=== PATIENT | male | born 1950 | race Caucasian/White ===

== ENCOUNTER → 2023-05-10 08:19 | Outpatient (REF) | payer MEDICARE, OTHER, SELFPAY | LOC: RAD 08:19 | PROVIDERS: ATTENDING PHYSICIAN Podiatrist Primary Podiatric Medicine; FAMILY PHYSICIAN Family Medicine | DX: M79.671 Pain in right foot (principal); M79.672 Pain in left foot; L89.892 Pressure ulcer of other site, stage 2; E11.51 Type 2 diabetes mellitus with diabetic peripheral angiopathy without gangrene | CPT/HCPCS: 93922; 93925 ==

== ENCOUNTER → 2023-06-19 12:16 | Outpatient (REF) | payer MEDICARE, OTHER, SELFPAY | LOC: HWRAD 12:16 | PROVIDERS: ATTENDING PHYSICIAN Podiatrist Primary Podiatric Medicine; FAMILY PHYSICIAN Family Medicine | DX: M79.671 Pain in right foot (principal) | CPT/HCPCS: 73630 ==

== ENCOUNTER 2023-07-11 12:05 | Emergency (ER) | payer MEDICARE, OTHER, SELFPAY ==
[2023-07-11 12:21] VITALS: BP 136/60
[2023-07-11 12:59] LABS: % Basophils 0.3 % (0-2); % Eosinophils 0.2 % (0-6); % Immature Granulocytes 0.3 % (0-0.5); % Lymphocytes 12.4 % (20.5-51.1); % Monocytes 8.9 % (1.7-9.3); % Neutrophils 77.9 % (42.2-75.2); Absolute Lymphocytes 0.7 10^3/uL (1.2-3.4); Absolute Monocytes 0.5 10^3/uL (0.1-0.6); Absolute Neutrophils 4.6 10^3/uL (1.4-6.5); Hematocrit 37.3 % (39.0-52.0); Hemoglobin 13.4 g/dL (13.0-18.0); Mean Corp Hgb Conc. 35.9 g/dL (33.0-37.0); Mean Corpuscular Hgb 31.9 pg (27.0-31.0); Mean Corpuscular Volume 88.8 fL (80.0-94.0); Nucleated Red Blood Cells % 0 % (-); Platelet Count 135 10^3/uL (130-400); Red Cell Dist. Width 13.5 % (11.5-14.5)
[2023-07-11 13:07] LABS: COVID-19 Antigen Negative (Negative)
[2023-07-11 13:14] LABS: ALT (SGPT) 17 U/L (0-50); AST (SGOT) 27 U/L (17-59); Albumin 4.2 g/dl (3.5-5.0); Alkaline Phosphatase 110 U/L (38-126); Blood Urea Nitrogen 23 mg/dl (9-20); Calcium 9.3 mg/dl (8.4-10.2); Carbon Dioxide 22 mmol/L (22-30); Chloride 100 mmol/L (98-107); Glucose 131 mg/dl (70-99); Potassium 4.6 mmol/L (3.5-5.1); Sodium 132 mmol/L (135-145); Total Bilirubin 0.8 mg/dl (0.2-1.3); Total Protein 6.8 g/dl (6.3-8.2); eGFR > 60.00
[2023-07-11 15:12] LABS: Glucose - Point of Care 143 mg/dl (70-99)
--- NOTE | 2023-07-11 15:24 | ED.GENMED ---
History of Present Illness
General
Chief Complaint: Breathing Problem
Time Seen by Provider: 07/11/23 15:03
Travel History
Have you had any contact with someone who has COVID-19?: No
Do you have any symptoms of coronavirus? Fever > 100 degrees, chills, cough, shortness of breath, sore throat, loss of taste or smell, muscle aches, or headache?: No
History of Present Illness
History of Present Illness:
72-year-old male with history of insulin-dependent diabetes, chronic kidney disease, permanent atrial fibrillation on anticoagulants, hypertension, and hyperlipidemia presents to the emergency department for evaluation of generalized weakness,
productive cough, and intermittent shortness of breath for the past 3 days. Noted a tactile fever today prompting him to come to the emergency department. Denies any chest pain at rest. Denies any leg swelling or orthopnea. No ill contacts at
home.
Past History
Past History
ED Past Medical History: Arrthythmia (Atrial fib), HTN, Hypercholesterolemia, NIDDM and Other (Melanoma)
ED Past Surgical History: Other (Hernia)
Social History
Tobacco: Non-smoker
Alcohol: Occasional
Drug: None
Personal:
Living: alone
Review of Systems
Review of Systems
Allergies reviewed?: Yes
All Other Systems: ROS reviewed and negative except as documented in HPI and ROS
Phy Exam
Physical Exam
Physical Exam:
GEN: Well appearing, NAD, WDWN
Eyes: PERRLA, EOMs intact, no scleral icterus
HENT: NCAT, oral mucosa moist, no JVD, no cervical adenopathy.
Lungs: Mildly tachypneic, no accessory muscle use, focal rhonchi and wheezing heard at the left base, otherwise clear lungs
Cardiac: RRR, no M/R/G, no peripheral edema. Radial pulses 2+ bilat
Neuro: AO x 3
MSK: No gross deformity or ecchymosis. No edema. No digital clubbing
Skin: No rashes, petechiae. Normal color, no pallor or jaundice.
Psych: Calm, cooperative, proper hygiene
Scores
Heart Failure Risk
Heart Failure Risk Score: Not Applicable
Course
Orders/Labs/Results
Orders:
Orders
07/11/23 12:35
COVID-19 Antigen Urgent
Source: Nasal Swab
Complete Blood Count/With Diff Urgent
Comprehensive Metabolic Panel Urgent
Influenza A+B Rapid Molecular Urgent
[facility] Source: Nasal Swab
Specimen Description:
07/11/23 15:17
CR Chest - 2 Views Urgent
Comment:
Reason For Exam: SOB/coughing
07/11/23 16:30
Azithromycin [Zithromax] 500 mg PO NOW STA
Cefdinir [Omnicef] 300 mg PO NOW STA
Abnormal Lab Results
07/11/23 07/11/23
12:35 15:10
RBC 4.20 L 10^6/uL
(4.70-6.10)
Hct 37.3 L %
(39.0-52.0)
MCH 31.9 H pg
(27.0-31.0)
Absolute Lymphs (auto) 0.7 L 10^3/uL
(1.2-3.4)
Neutrophils % 77.9 H %
(42.2-75.2)
Lymphocytes % 12.4 L %
(20.5-51.1)
Sodium 132 L mmol/L
(135-145)
BUN 23 H mg/dl
(9-20)
Glucose 131 H mg/dl
(70-99)
POC Glucose 143 H mg/dl
(70-99)
07/11/23 12:35
07/11/23 12:35
Vital Signs
Initial and Last Documented VS:
Initial Vital Signs
Temp Pulse Resp BP Pulse Ox
98.9 F 77 20 136/60 96
07/11/23 12:21 07/11/23 12:21 07/11/23 12:21 07/11/23 12:21 07/11/23 12:21
Last Documented Vital Signs
Temp Pulse Resp BP Pulse Ox
98.9 F 77 20 136/60 96
07/11/23 12:21 07/11/23 12:21 07/11/23 12:21 07/11/23 12:21 07/11/23 12:21
MDM/Problems Addressed
MDM/Problems Addressed:
72-year-old male presents with shortness of breath and tactile fevers as well as productive coughing. He does have focal left base breath sounds suggestive of bacterial pneumonia. His respiratory effort is normal and his labs are reassuring. No
clinical signs concerning for CHF. He is anticoagulated thus do not suspect pulmonary embolism. Given his numerous medical comorbidities particularly insulin-dependent diabetes and chronic kidney disease he is high risk for complicated infections
thus we will treat him empirically with antibiotics despite lack of definitive imaging to prove pneumonia.
Comment
Comment:
Chest x-ray independently interpreted by me shows questionable patchy density in the right lower lobe, otherwise clear lungs, no effusions
*Critical Care Note
Total Time (30-74mins, 75-104mins- exclusive of procedures): Not Applicable
ED Attending Note
-
Portions of this chart may have been created with voice recognition software.� Occasional wrong word or��sound alike� substitutions may have occurred due to the inherent limitations of voice recognition software.
Discharge Plan
Departure
Patient Disposition: Home (Routine Discharge)
Date of Disposition: 07/11/23
Time of Disposition: 16:32
Patient with high blood pressure during this ER visit?: No
Discharge Problem:
Community acquired pneumonia
Instructions: Pneumonia, Adult (DC)
Prescriptions:
New
azithromycin [Zithromax] 250 mg tablet
250 mg PO DAILY Qty: 4 0RF
cefdinir 300 mg capsule
300 mg PO BID Qty: 9 0RF
No Action
diazepam 5 MG tablet
5 mg PO TIDPRN PRN (Reason: muscle spasms) Qty: 15 0RF
Patient Comments:
new prescription as of 03/12/2011
metformin 500 MG tablet
1,000 mg PO BID
atorvastatin 10 MG tablet
10 mg PO DAILY
sotalol 80 MG tablet
120 mg PO BID
warfarin [Jantoven] 10 MG tablet
10 mg PO DAILY
Patient Comments:
patient stated he takes 10 mg of coumadin daily for 13 out of 14 days--yesterday 03/11/2011 was his skip day
lisinopril 20 MG tablet
20 mg PO DAILY
oxycodone-acetaminophen 1 TABLET tablet
1 tab PO Q6HPRN PRN (Reason: pain)
tamsulosin 0.4 MG capsule
0.4 mg PO DAILY
repaglinide 1 MG tablet
1 mg PO MEALS
prednisone 10 mg tablet
20 mg PO DAILY 5 Days Qty: 10 0RF
meclizine 25 mg tablet
25 mg PO TID PRN (Reason: dizziness) Qty: 20 0RF
Referrals:
Wayne Liu, [Family Provider] -
Activity Restrictions/Additional Instructions:
Begin your antibiotics tomorrow
If your symptoms worsen, return to the ER
Interventions
Interventions:
*Risk Screen - Suicide Last Done: 07/11/23 15:27
*General Assessment Last Done: 07/11/23 15:27
*Neglect/Abuse Screening Last Done: 07/11/23 15:27
*ED COVID-19 Vaccine History Last Done: 07/11/23 12:21
ED- Cardiac Assessment Last Done: 07/11/23 15:27
ED- Pulmonary Assessment Last Done: 07/11/23 15:27
Discharge Date and Time
Print Language: [place]
[2023-07-11] MEDS: OMNICEF 300 MG PO (16:35)
[2023-07-11] MEDS: ZITHROMAX 500 MG PO (16:35)
== END 2023-07-11 16:43 | disposition home or self-care (01) ==
LOC: EMR 12:05
PROVIDERS: Emergency Medicine; EMERGENCY PHYSICIAN Emergency Medicine; FAMILY PHYSICIAN Family Medicine
DX: J18.9 Pneumonia, unspecified organism (principal); Z11.52 Encounter for screening for COVID-19; E11.22 Type 2 diabetes mellitus with diabetic chronic kidney disease; I48.21 Permanent atrial fibrillation; I12.9 Hypertensive chronic kidney disease with stage 1 through stage 4 chronic kidney disease, or unspecified chronic kidney disease; N18.9 Chronic kidney disease, unspecified; E78.00 Pure hypercholesterolemia, unspecified; Z85.820 Personal history of malignant melanoma of skin; Z79.01 Long term (current) use of anticoagulants; Z79.84 Long term (current) use of oral hypoglycemic drugs; Z88.0 Allergy status to penicillin; Z91.018 Allergy to other foods
CPT/HCPCS: 99283; 71046; 80053; 82962; 85025; 87502; 87811

== ENCOUNTER → 2023-07-26 11:32 | Outpatient (REF) | payer MEDICARE, OTHER, SELFPAY | LOC: HWRAD 11:32 | PROVIDERS: ATTENDING PHYSICIAN Family Medicine | DX: S79.819A Other specified injuries of unspecified hip, initial encounter (principal); M54.50 Low back pain, unspecified | CPT/HCPCS: 72110; 73522 ==

== ENCOUNTER → 2023-08-31 07:09 | Outpatient (REF) | payer MEDICARE, OTHER, SELFPAY | LOC: MRI 3T 07:09 | PROVIDERS: ATTENDING PHYSICIAN Pain Medicine Interventional Pain Medicine; FAMILY PHYSICIAN Family Medicine | DX: M54.16 Radiculopathy, lumbar region (principal) | CPT/HCPCS: 72148 ==

== ENCOUNTER → 2024-02-22 09:56 | Outpatient (REF) | payer MEDICARE, OTHER, SELFPAY ==
[2024-02-22 13:10] LABS: Blood Urea Nitrogen 26 mg/dl (9-20); Calcium 9.8 mg/dl (8.4-10.2); Carbon Dioxide 29 mmol/L (22-30); Chloride 100 mmol/L (98-107); Glucose 110 mg/dl (70-99); Potassium 4.9 mmol/L (3.5-5.1); Sodium 137 mmol/L (135-145); eGFR 52.74
== END ==
LOC: REG 09:56
PROVIDERS: ATTENDING PHYSICIAN Specialist; FAMILY PHYSICIAN Family Medicine
DX: E87.5 Hyperkalemia (principal); E11.22 Type 2 diabetes mellitus with diabetic chronic kidney disease; R80.9 Proteinuria, unspecified
CPT/HCPCS: 36415; 80048

== ENCOUNTER → 2024-02-28 07:09 | Outpatient (REF) | payer MEDICARE, OTHER, SELFPAY | LOC: RAD 07:09 | PROVIDERS: ATTENDING PHYSICIAN Family Medicine; OTHER PHYSICIAN Specialist | DX: R79.89 Other specified abnormal findings of blood chemistry (principal); E11.22 Type 2 diabetes mellitus with diabetic chronic kidney disease; N18.31 Chronic kidney disease, stage 3a; R10.32 Left lower quadrant pain | CPT/HCPCS: 74176 ==

== ENCOUNTER → 2024-04-28 07:35 | Outpatient (REF) | payer MEDICARE, OTHER, SELFPAY | LOC: MRI 3T 07:35 | PROVIDERS: ATTENDING PHYSICIAN Physician Assistant; FAMILY PHYSICIAN Family Medicine | DX: M54.14 Radiculopathy, thoracic region (principal) | CPT/HCPCS: 72146 ==

== ENCOUNTER → 2024-05-22 08:40 | Outpatient (REF) | payer MEDICARE, OTHER, SELFPAY | LOC: PAVMRI 08:40 | PROVIDERS: ATTENDING PHYSICIAN Physician Assistant; FAMILY PHYSICIAN Family Medicine | DX: R93.89 Abnormal findings on diagnostic imaging of other specified body structures (principal) | CPT/HCPCS: 72157; A9575 ==

== ENCOUNTER → 2024-08-23 06:24 | Outpatient (REF) | payer MEDICARE, OTHER, SELFPAY | LOC: RAD 06:24 | PROVIDERS: ATTENDING PHYSICIAN Surgery Vascular Surgery; FAMILY PHYSICIAN Family Medicine | DX: I73.9 Peripheral vascular disease, unspecified (principal) | CPT/HCPCS: 93922; 93925 ==

== ENCOUNTER → 2024-09-20 12:17 | Outpatient (REF) | payer MEDICARE, OTHER, SELFPAY | LOC: HWRAD 12:17 | PROVIDERS: ATTENDING PHYSICIAN Family Medicine | DX: E04.9 Nontoxic goiter, unspecified (principal) | CPT/HCPCS: 76536 ==

== ENCOUNTER 2024-12-09 18:14 | Inpatient (IN) | payer MEDICARE, OTHER, SELFPAY ==
[2024-12-09] VITALS (8 sets, daily range): BP systolic 104–153; BP diastolic 45–98; BMI 30.4
--- NOTE | 2024-12-09 14:27 | ED.GENMED ---
History of Present Illness
<Ramya Smith MD, Resident - Last Filed: 12/09/24 16:05>
General
Chief Complaint: Skin Problem
Source: patient
Time Seen by Provider: 12/09/24 13:49
History of Present Illness
History of Present Illness:
74-year-old male with past medical history of atrial fibrillation on Eliquis, CKD stage IV not on dialysis, insulin-dependent diabetes, hypertension presents the ER for severe right sided hip pain resulting in ambulatory dysfunction and left calf
skin infection.
Right hip pain started on November 11, 5 hours after she is COVID and flu shot. He went to see an orthopedic and x-ray did not reveal any fracture, dislocation or arthritis. He was diagnosed with bursitis and treated with a corticosteroid shot
with no improvement in symptoms. He attempted 2 weeks of physical therapy which did not help. Tylenol/codeine combination marginally helps, certain positions and movement make it worse. He rates the pain a 8-9 out of 10 in severity. The pain
radiates from his right medial buttocks down the anterior three quarters of his thigh associated with numbness and tingling. He denies any significant erythema, swelling, fevers, chills. He does endorse some nausea with intense pain that he states
has limited his eating. He has lost 19 lbs in the past month due to poor PO intake.
Regarding his left calf skin infection, it started about 2 weeks ago. He saw his PCP last Monday and was diagnosed with an abscess. It was 'drained' in the office and he was treated with antibiotics (not sure the name). Since then, it has
improved significantly. Erythema and swelling has significantly decreased.
He does endorse burning with urination for the past 6 days associated with increased frequency, urgency and weaker urinary stream. He denies any hematuria or rash. He has been taking cranberry supplements which have not helped.
Past History
<Ramya Smith MD, Resident - Last Filed: 12/09/24 16:05>
Past History
ED Past Medical History: Arrthythmia (Atrial fib), HTN, Hypercholesterolemia, IDDM, Other (Melanoma) and Other (Stage IV CKD not on dialysis, diabetic retinopathy, diabetic neuropathy, peripheral vascular disease, thyroid nodules)
ED Past Surgical History: Other (Hernia repair, tonsillectomy, bilateral rotator cuff surgery, left knee surgery)
Social History
Tobacco: Non-smoker
Alcohol: Daily (2-3 beers a day)
Drug: None
Personal:
Living: alone
Family History
Family History: Other (Mom-muscular dystrophy, unknown what type, quadruple bypass, pancreatic cancer at age 37)
Review of Systems
<Ramya Smith MD, Resident - Last Filed: 12/09/24 16:05>
Review of Systems
Allergies reviewed?: Yes
Constitutional: Reports weight loss
EENT: Reports no symptoms
Respiratory: Reports no symptoms
Cardiac: Reports no symptoms
ABD/GI: Reports other (Yellow brown stools)
: Reports dysuria, frequency and urgency
Musculoskeletal: Reports muscle pain (Right hip pain)
Skin: Reports other (left calf erythema )
Neurological: Reports numbness
Endocrine: Reports no symptoms
Hematologic/Lymphatic: Reports no symptoms
Psychiatric: Reports no symptoms
Phy Exam
<Ramya Smith MD, Resident - Last Filed: 12/09/24 16:05>
Physical Exam
Physical Exam:
General: Non-toxic, well appearing
Head: Atraumatic
Cardiac: Bradycardic irregular rhythm
Respiratory: Clear breath sounds bilaterally
Abdomen: Diffusely abdominal tenderness with palpation, no CVA tenderness, no guarding or rigidity, obese
Extremities: No peripheral edema
Skin: Left calf wound with Band-Aid present, under Band-Aid, mild erythema
Musculoskeletal: Tenderness with palpation just proximal to the left lateral epicondyle, tenderness along medial gluteus, no lumbar midline tenderness, left sided paravertebral muscle tenderness.
Neurological: Nonfocal, awake alert and oriented
Psych: Calm
Course
<Ramya Smith MD, Resident - Last Filed: 12/09/24 16:05>
Orders/Labs/Results
Orders:
Orders
12/09/24 14:51
CBC/With Diff [Complete Blood Count/With Diff] Urgent
Comprehensive Metabolic Panel Urgent
Serum Osmolality Urgent
Comment: ADD ON
12/09/24 Dinner
2000 calorie (17 carb) Diabetic
At Your Request: Full Participation
Does patient need a safe tray?: No
12/09/24 15:30
Osmolality, Random Urine Urgent
Date Specimen was Collected: 11/29/24
Time Specimen was Collected: 15:02
Comment: ADD ON
Urinalysis Reflex To Culture Urgent
Date Specimen was Collected: 11/29/24
Time Specimen was Collected: 15:02
Urine Microscopic Reflex Cult Urgent
Urine Sodium Urgent
Date Specimen was Collected: 11/29/24
Time Specimen was Collected: 15:02
Comment: ADD ON
Urine Culture Urgent
LUKE Source: U
Specimen Description:
Date Specimen was Collected: 11/29/24
Time Specimen was Collected: 15:02
12/09/24 15:55
Electrocardiogram (*1) Urgent
Reason for Study: Other
Other Reason for Exam: Hyperkalemia
EKG- Treatment ONCE
12/09/24 16:34
CefTRIAXone [Rocephin] 1,000 mg IV NOW STA
HYDROmorphone [Dilaudid] 0.5 mg IV NOW STA
12/09/24 17:17
Admit/Transfer Patient As Directed
Co-Sign Provider:
Level of Care: Inpatient admission
Assign to:: Telemetry
Physician / Group: Htay
Diagnosis: QUINTIN, Hyperkalemia, UTI
Reason for Telemetry: Arrhythmia
Date to Stop Telemetry: 12/12/24
Time to Stop Telemetry: 11:00
Reason for Hospitalization: IVFs, IV abx
Expected length of stay greater than two midnights?: Yes
ELOS- Estimated Length of Stay in days: 3
I certify the patient meets the requirements for IP care: Yes
PRN Pain Medication Management As Directed
May give lesser potent ordered pain med per pt: Yes
preference::
Protocol:: Medication orders for pain may be administered in a
manner that supports deferring to patient preference
when the pt is:
- Requesting an ordered lesser potent pain medication.
Least to most potent pain medications are defined
as: acetaminophen < NSAID < tramadol < opioids
(morphine, oxycodone, hydromorphone).
- Requesting a lesser dose of the same medication IF
ORDERED.
- Requesting a less intrusive route of administration
if both routes are prescribed by the provider (PO <
IV).
12/09/24 17:19
Code Status As Directed
Resuscitation Status: Full Code
12/09/24 17:30
0.9% Sodium Chloride 1000 ml [Nss] 1,000 ml IV 100 mls/hr
12/09/24 18:20
DC Protocol for Telemetry ONCE
12/09/24 18:23
Acetaminophen [Tylenol] 650 mg PO Q4HPRN PRN
Atorvastatin [Lipitor] 10 mg PO QPM
Dextrose 50%-Water [Dextrose 50% Syringe] 12.5 grams IV [id number] PRN
Doxazosin Mesylate [Cardura] 2 mg PO QPM
Glucagon [GlucaGen] 1 mg IM PRN PRN
HYDROmorphone [Dilaudid] 0.5 mg IV Q3HPRN PRN
Oxycodone/Acetaminophen [Percocet 5/325] 1 tablet PO Q4HPRN PRN
12/09/24 18:23
Lumbar Without Contrast MR [MR Lumbar Without Contrast] Routine
Comment:
Reason For Exam: lumbar radiculopathy
Recent pill cam endoscopy?: No
Activity As Directed
Activity Level: Out of Bed-Early Mobility
With Assistance
Bedside Glucose Monitoring As Directed
Frequency: AC&HS
Additional Instructions:: Change to q6h if pt on TPN, tube feeding or not eating
Bladder Scan As Directed
Follow Bladder Retention/Intermittent Cath Algorithm?: Yes
PRN if no void in __ hours: 6
Frequency: Per Retention Algorithm
If Bladder Scan Result >: 400
then:: Straight cath
I&O [Intake/ Output] As Directed
Frequency: q12h
Straight Cath As Directed
Frequency: Per Retention Algorithm
Additional Instructions: straight cath as needed per acute urinary retention algorithm for 24 hrs
Additional Instructions: for bladder scan greater than 400 mL
Vital Signs As Directed
Frequency: Per unit guidelines
Weight As Directed
Frequency: Daily
Ot Eval And Treat Routine
Pt Eval And Treat Routine
Activity Level: Out of Bed-Early Mobility
12/09/24 20:00
Apixaban [Eliquis] 5 mg PO BID
12/09/24 22:00
Gabapentin [Neurontin] 300 mg PO HS
Tamsulosin [Flomax] 0.4 mg PO HS
insulin glargine [Lantus Solostar U-100 Insulin] 16 unit SC HS
12/10/24 07:05
Basic Metabolic Panel IN AM
Complete Blood Count/No Diff IN AM
Glycohemoglobin (HgbA1c) IN AM
Magnesium IN AM
12/10/24 07:30
Insulin Aspart Corrective Low [Novolog Flexpen-Low Resistance] See Protocol SC AC
12/10/24 08:00
Lidocaine [Lidocaine 4% Patch] 1 patch TOPICAL DAILY
Apply Lidocaine patch(s) to:: Apply to Right Hip
Prednisone [Deltasone] 40 mg PO DAILY
12/10/24 16:00
CefTRIAXone [Rocephin] 1,000 mg IV Q24H
Abnormal Lab Results
12/09/24 12/09/24
14:51 15:30
RBC 4.36 L 10^6/uL
(4.70-6.10)
MCH 31.2 H pg
(27.0-31.0)
Absolute Monos (auto) 0.7 H 10^3/uL
(0.1-0.6)
Lymphocytes % 14.9 L %
(20.5-51.1)
Sodium 127 L mmol/L
(135-145)
Potassium 5.7 H mmol/L
(3.5-5.1)
Carbon Dioxide 18 L mmol/L
(22-30)
BUN 50 H mg/dl
(9-20)
Creatinine 2.1 H mg/dL
(0.7-1.3)
Glucose 155 H mg/dl
(70-99)
Ur Occult Blood Reflex 1+ A
(Negative)
Leukocyte Esterase Rfl 2+ A
(Negative)
Urine RBC 3-6 A /HPF
(0-2)
Urine WBC (Reflex) 50-60 A /HPF
(0-5)
Urine Bacteria (Reflex) Moderate A
(Negative)
Urine Glucose 4+ A
(Negative)
Urine Albumin (Reflex) 1+ A
(Neg - Trace)
12/09/24 14:51
12/09/24 14:51
Vital Signs
Initial and Last Documented VS:
Initial Vital Signs
Temp Pulse Resp BP Pulse Ox
97.6 F 60 16 118/59 99
12/09/24 12:41 12/09/24 12:41 12/09/24 12:41 12/09/24 12:41 12/09/24 12:41
Last Documented Vital Signs
Temp Pulse Resp BP Pulse Ox
97.6 F 107 16 116/80 99
12/11/24 07:30 12/11/24 07:46 12/11/24 07:30 12/11/24 07:30 12/11/24 07:30
<Dariel Yuan MD - Last Filed: 12/11/24 11:56>
Orders/Labs/Results
Orders:
Orders
12/09/24 14:51
CBC/With Diff [Complete Blood Count/With Diff] Urgent
Comprehensive Metabolic Panel Urgent
Serum Osmolality Urgent
Comment: ADD ON
12/09/24 Dinner
2000 calorie (17 carb) Diabetic
At Your Request: Full Participation
Does patient need a safe tray?: No
12/09/24 15:30
Osmolality, Random Urine Urgent
Date Specimen was Collected: 11/29/24
Time Specimen was Collected: 15:02
Comment: ADD ON
Urinalysis Reflex To Culture Urgent
Date Specimen was Collected: 11/29/24
Time Specimen was Collected: 15:02
Urine Microscopic Reflex Cult Urgent
Urine Sodium Urgent
Date Specimen was Collected: 11/29/24
Time Specimen was Collected: 15:02
Comment: ADD ON
Urine Culture Urgent
LUKE Source: U
Specimen Description:
Date Specimen was Collected: 11/29/24
Time Specimen was Collected: 15:02
12/09/24 15:55
Electrocardiogram (*1) Urgent
Reason for Study: Other
Other Reason for Exam: Hyperkalemia
EKG- Treatment ONCE
12/09/24 16:34
CefTRIAXone [Rocephin] 1,000 mg IV NOW STA
HYDROmorphone [Dilaudid] 0.5 mg IV NOW STA
12/09/24 17:17
Admit/Transfer Patient As Directed
Co-Sign Provider:
Level of Care: Inpatient admission
Assign to:: Telemetry
Physician / Group: Htay
Diagnosis: QUINTIN, Hyperkalemia, UTI
Reason for Telemetry: Arrhythmia
Date to Stop Telemetry: 12/12/24
Time to Stop Telemetry: 11:00
Reason for Hospitalization: IVFs, IV abx
Expected length of stay greater than two midnights?: Yes
ELOS- Estimated Length of Stay in days: 3
I certify the patient meets the requirements for IP care: Yes
PRN Pain Medication Management As Directed
May give lesser potent ordered pain med per pt: Yes
preference::
Protocol:: Medication orders for pain may be administered in a
manner that supports deferring to patient preference
when the pt is:
- Requesting an ordered lesser potent pain medication.
Least to most potent pain medications are defined
as: acetaminophen < NSAID < tramadol < opioids
(morphine, oxycodone, hydromorphone).
- Requesting a lesser dose of the same medication IF
ORDERED.
- Requesting a less intrusive route of administration
if both routes are prescribed by the provider (PO <
IV).
12/09/24 17:19
Code Status As Directed
Resuscitation Status: Full Code
12/09/24 17:30
0.9% Sodium Chloride 1000 ml [Nss] 1,000 ml IV 100 mls/hr
12/09/24 18:20
DC Protocol for Telemetry ONCE
12/09/24 18:23
Acetaminophen [Tylenol] 650 mg PO Q4HPRN PRN
Atorvastatin [Lipitor] 10 mg PO QPM
Dextrose 50%-Water [Dextrose 50% Syringe] 12.5 grams IV [id number] PRN
Doxazosin Mesylate [Cardura] 2 mg PO QPM
Glucagon [GlucaGen] 1 mg IM PRN PRN
HYDROmorphone [Dilaudid] 0.5 mg IV Q3HPRN PRN
Oxycodone/Acetaminophen [Percocet 5/325] 1 tablet PO Q4HPRN PRN
12/09/24 18:23
Lumbar Without Contrast MR [MR Lumbar Without Contrast] Routine
Comment:
Reason For Exam: lumbar radiculopathy
Recent pill cam endoscopy?: No
Activity As Directed
Activity Level: Out of Bed-Early Mobility
With Assistance
Bedside Glucose Monitoring As Directed
Frequency: AC&HS
Additional Instructions:: Change to q6h if pt on TPN, tube feeding or not eating
Bladder Scan As Directed
Follow Bladder Retention/Intermittent Cath Algorithm?: Yes
PRN if no void in __ hours: 6
Frequency: Per Retention Algorithm
If Bladder Scan Result >: 400
then:: Straight cath
I&O [Intake/ Output] As Directed
Frequency: q12h
Straight Cath As Directed
Frequency: Per Retention Algorithm
Additional Instructions: straight cath as needed per acute urinary retention algorithm for 24 hrs
Additional Instructions: for bladder scan greater than 400 mL
Vital Signs As Directed
Frequency: Per unit guidelines
Weight As Directed
Frequency: Daily
Ot Eval And Treat Routine
Pt Eval And Treat Routine
Activity Level: Out of Bed-Early Mobility
12/09/24 20:00
Apixaban [Eliquis] 5 mg PO BID
12/09/24 22:00
Gabapentin [Neurontin] 300 mg PO HS
Tamsulosin [Flomax] 0.4 mg PO HS
insulin glargine [Lantus Solostar U-100 Insulin] 16 unit SC HS
12/10/24 07:05
Basic Metabolic Panel IN AM
Complete Blood Count/No Diff IN AM
Glycohemoglobin (HgbA1c) IN AM
Magnesium IN AM
12/10/24 07:30
Insulin Aspart Corrective Low [Novolog Flexpen-Low Resistance] See Protocol SC AC
12/10/24 08:00
Lidocaine [Lidocaine 4% Patch] 1 patch TOPICAL DAILY
Apply Lidocaine patch(s) to:: Apply to Right Hip
Prednisone [Deltasone] 40 mg PO DAILY
12/10/24 16:00
CefTRIAXone [Rocephin] 1,000 mg IV Q24H
Abnormal Lab Results
12/09/24 12/09/24
14:51 15:30
RBC 4.36 L 10^6/uL
(4.70-6.10)
MCH 31.2 H pg
(27.0-31.0)
Absolute Monos (auto) 0.7 H 10^3/uL
(0.1-0.6)
Lymphocytes % 14.9 L %
(20.5-51.1)
Sodium 127 L mmol/L
(135-145)
Potassium 5.7 H mmol/L
(3.5-5.1)
Carbon Dioxide 18 L mmol/L
(22-30)
BUN 50 H mg/dl
(9-20)
Creatinine 2.1 H mg/dL
(0.7-1.3)
Glucose 155 H mg/dl
(70-99)
Ur Occult Blood Reflex 1+ A
(Negative)
Leukocyte Esterase Rfl 2+ A
(Negative)
Urine RBC 3-6 A /HPF
(0-2)
Urine WBC (Reflex) 50-60 A /HPF
(0-5)
Urine Bacteria (Reflex) Moderate A
(Negative)
Urine Glucose 4+ A
(Negative)
Urine Albumin (Reflex) 1+ A
(Neg - Trace)
12/09/24 14:51
12/09/24 14:51
Vital Signs
Initial and Last Documented VS:
Initial Vital Signs
Temp Pulse Resp BP Pulse Ox
97.6 F 60 16 118/59 99
12/09/24 12:41 12/09/24 12:41 12/09/24 12:41 12/09/24 12:41 12/09/24 12:41
Last Documented Vital Signs
Temp Pulse Resp BP Pulse Ox
97.6 F 107 16 116/80 99
12/11/24 07:30 12/11/24 07:46 12/11/24 07:30 12/11/24 07:30 12/11/24 07:30
<Ramya Smith MD, Resident - Last Filed: 12/09/24 16:05>
MDM/Problems Addressed
Differential Diagnosis Includes:
Degenerative disc disease, bursitis, lateral cutaneous nerve entrapment, septic arthritis, musculoskeletal strain,
cellulitis, abscess, superficial wound,
urinary tract infection, pyelonephritis, prostatitis,
MDM/Problems Addressed:
CBC to eval for systemic infection, CMP to check renal function. U/A to eval burning with urination. Imaging at orthopedics did not reveal any arthritis, fracture or dislocation. He may need an MRI in the future to further evaluate his chronic pain.
Based on physical exam, hip pain likely combination of bursitis, musculoskeletal strain and lateral cutaneous nerve entrapment. He still has full range of motion and is able to walk however in pain. He does not have any fever or chills which makes
systemic infection less likely. Left calf cellulitis is improving and does not require additional treatment based on today's presentation. However BMP noted to be altered with Na 127, K 5.7, Cr 2.1. UA reveals UTI.
Chronic conditions affecting care: DM, PVD and Other (CKD stage 4, a.fib on eliquis, )
<Ramya Smith MD, Resident - Last Filed: 12/09/24 16:05>
*Pulse Oximetry
SaO2: 99
Oxygen Mode of Delivery: Room air
Patient hypoxic: no
*Critical Care Note
Total Time (30-74mins, 75-104mins- exclusive of procedures): Not Applicable
Data Reviewed
Review of Other/Old Records Reveals: Labs (Creatinine on 02/22/2024 1.4, GFR 52.74) and Radiology Studies (Thyroid nodules stable prior thyroid ultrasound 09/20/2024)
Source: patient, records and significant other
<Dariel Yuan MD - Last Filed: 12/11/24 11:56>
*EKG
Interpreted by ED Provider?: Yes
EKG Intrepretation Date: 12/09/24
Heart Rate: 76
Rate: normal
Rhythm: a-fib
[place]: normal axis
ED Attending Note
<Ramya Smith MD, Resident - Last Filed: 12/09/24 16:05>
-
Portions of this chart may have been created with voice recognition software.� Occasional wrong word or��sound alike� substitutions may have occurred due to the inherent limitations of voice recognition software.
<Dariel Yuan MD - Last Filed: 12/11/24 11:56>
ED Attending Note
Patient seen and examined by attending physician: Yes
ED Attending Note:
Patient presents to ED secondary to worsening right hip pain over the past 1 month, despite receiving cortisone injection by Dr. Junior, orthopedic surgeon, with clinical concern for bursitis. In addition, patient is reporting 6-day history of
dysuria along with urinary frequency. Patient currently is taking Bactrim secondary to potential infection of his left leg with improvement. Denies fever or chills. Denies nausea or vomiting. Denies loss of sensation or weakness. Denies back
pain, although patient does have history of lumbar stenosis. Denies urinary or bowel incontinence. Denies loss of sensation or weakness of legs. Denies direct trauma.
Physical Exam
General: mild distress, not acutely ill. afebrile
Head: nc/at. eomi
Neck: supple. no meningeal signs.
Heart: irregularly irregular
Lungs: no acute respiratory distress. clear bilaterally
Abdomen: normal bowel sounds. not tender
Neuro: alert and oriented x 3. no focal neurological deficits
Skin: no rash
Psychiatric: well kept. interactive and cooperative
Extremities: no edema. mild diffuse right hip tenderness to palpation
Blood work reviewed, significant for hyponatremia, hyperkalemia, along with acute renal failure on chronic renal insufficiency. Urinalysis also suggestive of urinary tract infection, despite taking Bactrim for the past 4 days, along with continued
urinary symptoms. As such, patient will be admitted for IV antibiotics and further assessment. Patient also may benefit from consultation with his orthopedic surgeon, with his hip pain worsening despite outpatient treatment.
Discharge Plan
Departure
Patient Disposition: Admit
Date of Disposition: 12/09/24
Time of Disposition: 16:37
Admit to: Med/Surg
Presentation/result/management discussed w/ accepting MD/DO: Hospitalist
Discharge Problem:
Acute UTI, Acute renal failure superimposed on chronic kidney disease, Hyperkalemia, Hip pain
Interventions
Interventions:
*Risk Screen - Suicide Last Done: 12/09/24 12:41
*General Assessment Last Done: 12/09/24 14:47
*Neglect/Abuse Screening Last Done: 12/09/24 12:41
*ED- Fall Risk Assessment Last Done: 12/09/24 14:47
*ED COVID-19 Vaccine History Last Done: 12/09/24 14:47
*ED Influenza Vaccine History Last Done: 12/09/24 14:47
*Nursing Disposition Last Done: 12/09/24 18:16
ED-Skin Assessment Last Done: 12/09/24 14:43
Discharge Date and Time
Discharge Date/Time: 12/09/24 18:16
[2024-12-09 15:00] LABS: Hematocrit 40.2 % (39.0-52.0); Hemoglobin 13.6 g/dL (13.0-18.0); Mean Corp Hgb Conc. 33.8 g/dL (33.0-37.0); Mean Corpuscular Volume 92.2 fL (80.0-94.0); Nucleated Red Blood Cells % 0 % (-); Platelet Count 215 10^3/uL (130-400); Red Cell Dist. Width 13.0 % (11.5-14.5)
[2024-12-09 15:28] LABS: ALT (SGPT) 27 U/L (0-50); AST (SGOT) 22 U/L (17-59); Albumin 4.1 g/dl (3.5-5.0); Alkaline Phosphatase 109 U/L (38-126); Blood Urea Nitrogen 50 mg/dl (9-20); Calcium 9.8 mg/dl (8.4-10.2); Carbon Dioxide 18 mmol/L (22-30); Chloride 104 mmol/L (98-107); Glucose 155 mg/dl (70-99); Potassium 5.7 mmol/L (3.5-5.1); Sodium 127 mmol/L (135-145); Total Protein 7.1 g/dl (6.3-8.2); eGFR 32.22
[2024-12-09 15:45] LABS: Urine Character Clear (Clear)
[2024-12-09 15:58] LABS: Urine White Cell 50-60 /HPF (0-5)
[2024-12-09] MEDS: ROCEPHIN 1000 MG IV (16:42)
[2024-12-09] MEDS: DILAUDID 0.5 MG IV (16:42)
--- NOTE | 2024-12-09 16:44 | HPS.HSE ---
Family Physician
-
Family Physician: Wayne Liu
Chief Complaint
-
Right Hip Pain
History of Present Illness
Patient is a 74 y/o male past medical history of permanent atrial fibrillation on anticoagulation, diabetes mellitus, CKD III, hypertension and spinal stenosis who presents with right hip pain. He reports worsening right hip pain for the past
month. He describes the pain as burning, radiating from hip down to the mid lateral thigh. He was seen by orthopedics in the office who did hip x-rays and gave him a cortisone injection for trochanteric bursitis. Patient reports pain is
essentially unchanged.
Patient reports he was seen by his primary care provider in the office at the end of last week due increasing pain, swelling and redness of the left. He was found to have an abscess which his PCP did drain. He was started on oral Bactrim which he
has been taking.
Patient is also complaining about urinary symptoms. He noted dysuria, particularly pain at the tip of penis. He reports notable decrease in stream over the past week which as been associated with urinary frequency. He denies any recorded fevers,
but notes intermittent chills.
Medical History
Past Medical History
Past Medical History: Reports Other
Additional Past Medical History:
Permanent Atrial Fibrillation
Diabetes Mellitus, Type II
CKD Stage III secondary to Diabetic Nephropathy
Essential Hypertension
Spinal Stenosis with Radiculopathy
BPH
Past Surgical History: Reports Other
Additional Past Surgical History:
Bilateral Rotator Cuff Repair
Left Knee Surgery
Hernia Repair
Social History
Tobacco: Non-smoker
Alcohol: Occasional
Family History
Family History: Not pertinent
Allergies / Home Medications
Allergies reflects when Allergies were last updated in [facility].
Home Medications with original date entered in [facility]
Allergy/Medication List:
Allergies
Allergy/AdvReac Type Severity Reaction Status Date / Time
Penicillins Allergy Swelling Verified 12/09/24 12:41
mayonnaise Allergy nausea Uncoded 12/09/24 12:41
products made with wheat Allergy slight sob Uncoded 12/09/24 12:41
Home Medications
atorvastatin 10 mg tablet 10 mg PO QPM High Cholesterol 03/12/11
tamsulosin 0.4 mg capsule 0.4 mg PO HS 03/12/11
acetaminophen 300 mg-codeine 30 mg tablet 1 tab PO Q6HPRN PRN moderate pains 12/09/24
apixaban 5 mg tablet (Eliquis) 5 mg PO BID Blood Clot Prevention/Tx 12/09/24
doxazosin 2 mg tablet 2 mg PO QPM 12/09/24
glipizide 5 mg tablet 5 mg PO BID Diabetes 12/09/24
insulin glargine 100 unit/mL (3 mL) subcutaneous pen (Lantus Solostar U-100 Insulin) 20 unit SC HS Diabetes 12/09/24
lisinopril 40 mg tablet 40 mg PO QPM Blood Pressure 12/09/24
nifedipine 30 mg tablet,extended release 24 hr 30 mg PO DAILYPRN PRN blood pressure 12/09/24
sulfamethoxazole 800 mg-trimethoprim 160 mg tablet (Bactrim DS) 1 tab PO BID Infection 12/09/24
therapeutic multivitamin 1 tab PO TUTH Supplement 12/09/24
turmeric 400 mg capsule 400 mg PO DAILY Supplement 12/09/24
verapamil 180 mg tablet,extended release 180 mg PO DAILYPRN PRN blood pressure 12/09/24
Review of Systems
-
A 12 point ROS was completed and negative except as noted: Yes
Constitutional: Reports Chills; Denies Fever
Respiratory: Denies Cough or Trouble Breathing
Cardiac: Denies Chest Pain or Palpitations
Abdomen/GI: Reports Nausea and Constipated; Denies Abdominal Pain or Vomiting
Physical Exam
Vital Signs
Vital Signs
Temp Pulse Resp BP Pulse Ox
97.6 F 73 29 122/68 99
12/09/24 12:41 12/09/24 14:45 12/09/24 14:45 12/09/24 15:31 12/09/24 14:47
Physical Exam
General: Comfortable and Conversant
HEENT: Anicteric and Moist mucous membranes
Respiratory: Clear and Non Labored Respirations
Cardiac: S1/S2, Irregular Rhythm and Murmur; No Tachycardia
GI: Soft, Non Tender and Other (Protuberant)
Rectal: Deferred by Provider
Genito-urinary: No costovertebral tender
Musculoskeletal: No Clubbing, No Cyanosis and No Edema
Skin: Warm and Dry
Neuro: Awake, Alert, Oriented and Nonfocal/grossly intact
Psych: Calm
Laboratory Results
-
12/09/24 14:51
12/09/24 14:51
Laboratory Results
Total Bilirubin 0.5 mg/dl (0.2-1.3) 12/09/24 14:51
AST 22 U/L (17-59) 12/09/24 14:51
ALT 27 U/L (0-50) 12/09/24 14:51
Alkaline Phosphatase 109 U/L (38-126) 12/09/24 14:51
Data Reviewed
-
Lab Data: Labs Reviewed by me
Old Records: Reviewed
Impression/Plan
-
QUINTIN on CKD III / Hyponatremia / Hyperkalemia, suspect all related to recent Bactrim
-Stop Bactrim
-Hold lisinopril
-Continue IVFs
-Recheck labs later this evening and in AM
Urinary Tract Infection
-Continue ceftriaxone
-Await urine culture, though maybe negative following recent Bactrim usage
Right Hip Pain, suspect lumbar radiculopathy
-Lumbar Spine MRI August 2023: Severe right neural foraminal stenosis L4/L5
-Obtain new Lumbar Spine MRI to evaluate for change given acute worsening of symptoms
-Start prednisone 40mg PO Daily
-Start gabapentin
-Add Lidocaine patch right hip
-Consult PT/OT
Permanent Atrial Fibrillation
-Continue Eliquis for anticoagulation
Diabetes Mellitus, Type II
-Continue Lantus at decreased dose
-Hold glipizide
-Monitor sugars and continue coverage insulin
Essential Hypertension
-Lisinopril on hold due to QUINTIN
-Monitor blood pressure
Hyperlipidemia
-Continue atorvastatin
BPH
-Continue doxazosin and tamsulosin
-Monitor bladder scans
DVT proph: Eliquis
Code Status: Full Code
--- NOTE | 2024-12-09 17:47 | W.PN.UPDATE ---
Update Note
Progress Note Update
This note serves as an addendum to the H&P by bridal sales consultant Lexie EVANS
HPI�
74M HX AF on Eliquis, CKD4, not on dialysis, IDDM, HTN seen at ER
- for severe right sided hip pain resulting in ambulatory dysfunction and left calf skin infection.
- Subacute R Hip pain for 1 month, eval by Orth - diagnosed with bursitis
No relief with corticosteroid shot and PT for 2 weeks. Tylenol/codeine combination marginally helps, certain positions and movement make it worse. Pain a 8-9 out of 10 with radiates from Rt medial buttocks down the anterior three quarters of
his thigh associated with numbness and tingling.
- left calf skin infection 2 weeks ago, diagnosed with an abscess was 'drained' in the office and he was treated with Bactrim.
Since then, it has improved significantly. Erythema and swelling has significantly decreased.
- reports Dysuria for the past 6 days associated with increased frequency, urgency and weaker urinary stream.
ROS:
denies any hematuria or rash.
- has been taking cranberry supplements which have not helped.
Relevant VS
Temp Pulse Resp BP Pulse Ox
97.6 F 72 16 128/86 98
12/09/24 12:41 12/09/24 17:45 12/09/24 17:45 12/09/24 17:00 12/09/24 17:45
PE
General: Non-toxic
CVS: Bradycardic irregular rhythm in perm AF
Res: CTA
Abdomen: benign exam
Extremities: No peripheral edema
Skin: Left calf wound with Band-Aid present, under Band-Aid, mild erythema
MS: Tenderness just proximal to the left lateral epicondyle, tenderness along medial gluteus, no lumbar midline tenderness, left sided paravertebral muscle tenderness.
Neurol: Nonfocal, awake alert and oriented
Psych: Calm
Relevant Data
02/22/24 12/09/24
10:11 14:51
WBC 8.3
Hgb 13.6
Plt Count 215
Sodium 127 L
Potassium 4.9 5.7 H
Carbon Dioxide 18 L
BUN 50 H
Creatinine 1.4 H 2.1 H
eGFR 52.74 32.22
MR Lumbar Without Contrast
1. 7.9 mm grade 1 anterolisthesis of L4 on L5 secondary to severe bilateral facet joint arthrosis. SEVERE CENTRAL CANAL STENOSIS, severe right neural foraminal narrowing, and moderate left neural foraminal narrowing at L4/L5.
2. Mild central canal stenosis at L3/L4 secondary to a small diffuse disc bulge.
3. Minimal central canal stenosis at L2/L3 secondary to a small diffuse disc bulge.
4. Mild multilevel lumbar discogenic degenerative disease.
5. Moderately exaggerated lumbar lordosis.
Last hospitalist admission:
ASSESSMENT & PLAN
Worsening R sided Lx radiculopathic pain
Known MRI evidence of SEVERE CENTRAL CANAL STENOSIS, severe right neural foraminal narrowing, and moderate left neural foraminal narrowing at L4/L5.
- start PO Prednisone 40mg daily x 4 days, 20mg daily for 2 days , 10mg daily for 2 days
- Start Gabapentin daily and escalde as tolerated
- PT/OT
- OP Ortho f/u
Symptomatic UTI
Hi PVR ? partial UR
- IV CFTZ
- c/w H[employer] OPERATIONS MANAGER Flomax
- f/u UCx
QUINTIN with hyperkalemia due to recet Bactrim Tx
- DC Bactrim
- Hold Lisinopril
IDDM
- de escalade Lantus
- Hold Glipizide
- add ISS low
Perm AF
- on chr Eliquis
- on Verapamil
DVT Px: chr Eliquis
Full code
IP MS
[2024-12-09] MEDS: FLOMAX 0.4 MG PO (21:03)
[2024-12-09] MEDS: NEURONTIN 300 MG PO (21:03)
[2024-12-09] MEDS: LIPITOR 10 MG PO (21:03)
[2024-12-09] MEDS: CARDURA 2 MG PO (21:03)
[2024-12-09] MEDS: ELIQUIS 5 MG PO (21:03)
[2024-12-09] MEDS: NSS 1000 IV (21:04)
[2024-12-09] MEDS: PERCOCET 5/325 1 TABLET PO (21:14)
[2024-12-09] MEDS: LANTUS 0.16 UNITS SC (21:16)
[2024-12-09 21:17] LABS: Glucose - Point of Care 160 mg/dl (70-99)
[2024-12-09] MEDS: LANTUS 0.04 UNITS SC (21:59)
[2024-12-09 22:54] LABS: Blood Urea Nitrogen 45 mg/dl (9-20); Calcium 9.5 mg/dl (8.4-10.2); Carbon Dioxide 17 mmol/L (22-30); Chloride 105 mmol/L (98-107); Estimated Creatinine Clearance 38 ml/min; Glucose 151 mg/dl (70-99); Potassium 5.2 mmol/L (3.5-5.1); Sodium 128 mmol/L (135-145); eGFR 36.33
[2024-12-10] VITALS (8 sets, daily range): BP systolic 109–152; BP diastolic 58–92; PULSE 98; O2SAT 100; BMI 29.0
[2024-12-10] MEDS: PERCOCET 5/325 1 TABLET PO ×2 (01:46→21:47)
[2024-12-10] MEDS: DILAUDID 0.5 MG IV ×3 (02:38→22:54)
[2024-12-10] MEDS: NSS 1000 IV ×2 (03:59→15:33)
[2024-12-10 07:41] LABS: Hematocrit 36.7 % (39.0-52.0); Hemoglobin 13.0 g/dL (13.0-18.0); Mean Corp Hgb Conc. 35.4 g/dL (33.0-37.0); Mean Corpuscular Volume 89.5 fL (80.0-94.0); Platelet Count 201 10^3/uL (130-400); Red Cell Dist. Width 12.9 % (11.5-14.5)
[2024-12-10 07:55] LABS: Blood Urea Nitrogen 38 mg/dl (9-20); Calcium 9.3 mg/dl (8.4-10.2); Carbon Dioxide 21 mmol/L (22-30); Chloride 107 mmol/L (98-107); Estimated Creatinine Clearance 38 ml/min; Glucose 60 mg/dl (70-99); Magnesium 2.0 mg/dl (1.6-2.3); Potassium 5.2 mmol/L (3.5-5.1); Sodium 135 mmol/L (135-145); eGFR 41.52
[2024-12-10 08:00] LABS: Glucose - Point of Care 70 mg/dl (70-99)
[2024-12-10] MEDS: NOVOLOG FLEXPEN-LOW RESISTANCE SC (08:16)
[2024-12-10] MEDS: LIDOCAINE 4% PATCH 1 PATCH TOPICAL (08:17)
[2024-12-10] MEDS: DELTASONE 40 MG PO (08:18)
[2024-12-10] MEDS: ELIQUIS 5 MG PO (08:18)
[2024-12-10 09:04] LABS: Glycohemoglobin (HgbA1c) 7.8 % (4.0-5.9)
--- NOTE | 2024-12-10 10:32 | W.PN.HOSP.TC ---
Today's Communication/Plan
-
Lokelma, IVF
bowel regimen
continue Gabapentin/prednisone
Spine eval
continue Rocephin for UTI pending culture
Assessment / Plan
Assessment / Plan
Assessment:
QUINTIN on CKD 3b with associated hyponatremia/hyperkalemia
- likely related to recent Bactrim
- continue IVF and monitor BMP - parameters are slowly improving
- Bladder scan protocol
Recent UTI
- was on Bactrim; f/u culture although may be negative
- continue Rocephin day 2, pending culture
Right hip pain
- MRI L spine 08/2023: 7.9 mm grade 1 anterolisthesis of L4 on L5 secondary to severe bilateral facet joint arthrosis. SEVERE CENTRAL CANAL STENOSIS, severe right neural foraminal narrowing, and moderate left neural foraminal narrowing at L4/L5.
- MRI L spine today: MODERATE-SIZED RIGHT SUBARTICULAR-FORAMINAL DISC EXTRUSION at L4/L5 causing severe exiting right L4 nerve root impingement and severe right neural foraminal narrowing which appears new from 08/31/2023.
- continue PO steroids, Gabapentin and Lidocaine patch
- consult spinal surgery for opinion on procedural intervention
- PT/OT
Perm A. Fib
- hold Eliquis in case of procedure
Type 2 DM
- continue reduced dose Lantus
- hold Glipizide
- SSI
Essential HTN
- holding LUIS MIGUEL due to QUINTIN
- continue Nifedipine/Doxazosin
HLD - statin
BPH - continue doxazosin and tamsulosin
DVT ppx: SCDs
Code: Full
Anticipated Discharge: > 48 hours
Subjective/Interval History
-
Date of Service: December 10, 2024
reports R radicular pain extending into R groin and thigh
Objective Data
-
Labs:
Laboratory Results
12/09/24 12/10/24
22:33 07:05
WBC 7.1
Hgb 13.0
Hct 36.7 L
Plt Count 201
Sodium 128 L 135
Potassium 5.2 H 5.2 H
Chloride 105 107
Carbon Dioxide 17 L 21 L
BUN 45 H 38 H
Creatinine 1.9 H 1.7 H
Glucose 151 H 60 L
Calcium 9.5 9.3
Vital Signs:
Vital Signs
Temp Pulse Resp BP Pulse Ox
97.4 F 89 18 121/72 100
12/10/24 07:44 12/10/24 07:44 12/10/24 07:44 12/10/24 07:44 12/10/24 07:44
I&O
12/09/24 12/10/24 12/11/24
06:59 06:59 06:59
Intake Total 1440 / 1440
Output Total 1999 / 1999
Balance -560 / -560
Physical Exam
-
General: No Apparent Distress
HEENT: Normocephalic and Atraumatic
Respiratory: Negative Wheezes
Cardiac: Regular Rhythm and S1/S2
GI: Soft and Nontender
Genito-urinary: No Costovertebral Tender
Neuro: AO x 3
Psych: Calm
Data Reviewed
-
Total Time Spent with Patient (in minutes): 42
Labs: Labs Reviewed by me
[2024-12-10] MEDS: LOKELMA 5 GRAM PO (11:13)
[2024-12-10] MEDS: SENOKOT-S 1 TABLET PO ×2 (11:13→19:01)
[2024-12-10 12:15] LABS: Glucose - Point of Care 163 mg/dl (70-99)
[2024-12-10] MEDS: NOVOLOG FLEXPEN-LOW RESISTANCE 1 UNITS SC (12:29)
--- NOTE | 2024-12-10 13:29 | W.PN.UPDATE ---
Update Note
Progress Note Update
patient in perm A. Fib, RVR currently with rates >115; obtain EKG, start short acting Dilt 30mg QID. Titrate for HR<100
[2024-12-10] MEDS: CARDIZEM 30 MG PO ×3 (13:39→19:01)
[2024-12-10 13:44] LABS: Glucose - Point of Care 286 mg/dl (70-99)
--- NOTE | 2024-12-10 13:48 | PTCARENOTE ---
Patient with uncontrolled afib. EKG done. Dr. Leon aware. Patient is asymptomatic. PO diltiazem given.
--- NOTE | 2024-12-10 14:34 | CON.NS ---
Consultation
-
Date/Time Consultation Performed: 12/10/24
Chief Complaint
-
Presenting with back and leg pain
History of Present Illness
74-year-old male prestented with back and right leg pain. his pain started on 11/10. He sought out care with orthopedics who did a bursal injection with no effect. He then started OP PT which aggravated his symptoms. His pain radiates in a L4
distribution.He denies any weakness in his leg. He also notes a left calf abscess that was drained by his PCP and urinary issues prior to admission with new dx of UTI. He describes his leg pain as burning/aching. He does have a hx of spinal
stenosis. He has a new MRI l-spine.
Review of Systems
-
10 pt ROS completed and negative except as stated
Medication and Allergies
Home Medications
Home Medications
�Medication �Instructions �Recorded
atorvastatin 10 mg tablet 10 mg PO QPM High Cholesterol 03/12/11
tamsulosin 0.4 mg capsule 0.4 mg PO HS 03/12/11
acetaminophen 300 mg-codeine 30 mg 1 tab PO Q6HPRN PRN moderate pains 12/09/24
tablet
apixaban 5 mg tablet (Eliquis) 5 mg PO BID Blood Clot 12/09/24
Prevention/Tx
doxazosin 2 mg tablet 2 mg PO QPM 12/09/24
glipizide 5 mg tablet 5 mg PO BID Diabetes 12/09/24
insulin glargine 100 unit/mL (3 20 unit SC HS Diabetes 12/09/24
mL) subcutaneous pen (Lantus
Solostar U-100 Insulin)
lisinopril 40 mg tablet 40 mg PO QPM Blood Pressure 12/09/24
nifedipine 30 mg tablet,extended 30 mg PO DAILYPRN PRN blood 12/09/24
release 24 hr pressure
sulfamethoxazole 800 1 tab PO BID Infection 12/09/24
mg-trimethoprim 160 mg tablet
(Bactrim DS)
therapeutic multivitamin 1 tab PO TUTH Supplement 12/09/24
turmeric 400 mg capsule 400 mg PO DAILY Supplement 12/09/24
verapamil 180 mg tablet,extended 180 mg PO DAILYPRN PRN blood 12/09/24
release pressure
Allergies
Allergies
Allergy/AdvReac Type Severity Reaction Status Date / Time
Penicillins Allergy Swelling Verified 12/09/24 12:41
mayonnaise Allergy nausea Uncoded 12/09/24 12:41
products made with wheat Allergy slight sob Uncoded 12/09/24 12:41
Physical Exam
-
Exam:
AAOx3
CN's2-12 intact
MAEx4 with normal stength in UE and LE's
decreased patellar reflex right
sensation intact
MRI lumbar spine reviewed which shows L4-5 grade 1 spondylolisthesiswith right sided crnaially migrated L4/5 HNP causing severe L4 nerve root compression
Problems
-
Problem Status Onset Code
Hip pain Acute M25.559
Hyperkalemia Acute E87.5
Acute renal failure superimposed on chronic kidney disease Acute N17.9, N18.9
Acute UTI Acute N39.0
Assessment / Plan
-
Lumbar radiculopathy
Lumbar stenosis
Lumbar spondylolisthesis
1. attempt KYAW with IR while in house.
2. pain control
3. he has no weakness on exam, if pain is controlled following KYAW then rec for OP follow up once discharged
4. if he is unable to dc then can consider inpatient operation
5. notify neurosurgery of any changes
[2024-12-10] MEDS: ROCEPHIN 1000 MG IV (15:27)
[2024-12-10] MEDS: STERILE WATER FOR INJECTION 10 ML IV (15:27)
[2024-12-10 16:09] LABS: INR 1.16; PT 15.1 Sec (11.4-14.6)
--- NOTE | 2024-12-10 16:30 | CM ---
Alert awake oriented patient who lives with his friend Radhika who lives in a 2 story home with 1 step to enter and 14 steps to bed and bathroom. He is independent in driving and in all activities of daily living.He was offered VN he declined need.
No VN hx / No SNF history
Pharmacy [facility]
PCP DR Liu
PLAN Home Declined VN
[2024-12-10 16:41] LABS: Glucose - Point of Care 216 mg/dl (70-99)
[2024-12-10] MEDS: NOVOLOG FLEXPEN-LOW RESISTANCE 2 UNITS SC (16:53)
[2024-12-10] MEDS: LIPITOR 10 MG PO (16:54)
[2024-12-10] MEDS: CARDURA 2 MG PO (16:54)
[2024-12-10 21:30] LABS: Glucose - Point of Care 263 mg/dl (70-99)
[2024-12-10] MEDS: LANTUS 0.16 UNITS SC (21:41)
[2024-12-10] MEDS: NEURONTIN 300 MG PO (21:42)
[2024-12-10] MEDS: CARDIZEM 60 MG PO (21:42)
[2024-12-10] MEDS: FLOMAX 0.4 MG PO (21:42)
--- NOTE | 2024-12-11 01:06 | PTCARENOTE ---
pt with afib 40's -50's after several doses of po Cardizem- bp wnl- asymptomatic with bradycardia . pt upset with our management of his blood glucose- his blood glucose levels have ranged from 70's to 200's- all md orders have been followed
[2024-12-11 03:13] VITALS: BP 142/80
[2024-12-11 05:39] VITALS: BMI 29.8
[2024-12-11] MEDS: DILAUDID 0.5 MG IV ×2 (06:10→21:04)
[2024-12-11 07:21] LABS: Glucose - Point of Care 158 mg/dl (70-99)
[2024-12-11 07:30] VITALS: BP 116/80
[2024-12-11 07:42] LABS: Hematocrit 38.7 % (39.0-52.0); Hemoglobin 13.4 g/dL (13.0-18.0); Mean Corp Hgb Conc. 34.6 g/dL (33.0-37.0); Mean Corpuscular Volume 92.4 fL (80.0-94.0); Platelet Count 205 10^3/uL (130-400); Red Cell Dist. Width 12.8 % (11.5-14.5)
[2024-12-11] MEDS: NOVOLOG FLEXPEN-LOW RESISTANCE 1 UNITS SC (07:45)
[2024-12-11] MEDS: CARDIZEM 60 MG PO ×4 (07:46→21:02)
[2024-12-11] MEDS: DELTASONE 40 MG PO (07:46)
[2024-12-11] MEDS: SENOKOT-S 1 TABLET PO ×2 (07:46→21:03)
[2024-12-11] MEDS: LIDOCAINE 4% PATCH 1 PATCH TOPICAL (07:47)
[2024-12-11 08:08] LABS: Blood Urea Nitrogen 32 mg/dl (9-20); Calcium 9.3 mg/dl (8.4-10.2); Carbon Dioxide 21 mmol/L (22-30); Chloride 106 mmol/L (98-107); Estimated Creatinine Clearance 53 ml/min; Glucose 140 mg/dl (70-99); Potassium 5.2 mmol/L (3.5-5.1); Sodium 135 mmol/L (135-145); eGFR > 60.00
[2024-12-11] MEDS: NSS 1000 IV ×2 (09:29)
[2024-12-11 11:15] VITALS: BP 120/77
--- NOTE | 2024-12-11 11:16 | PTCARENOTE ---
12/12/2024 DIABETES EDUCATION CONSULTATION
Patient IP for R. hip pain/bursitis, on steroids. States he is getting a spinal epidural tomorrow. Also being treated for aFib. His HbA1c on 12/10/2024 was 7.8%, he states his last A1c was in the low 7% with a target A1c range of 6.9%-7.2% and an
upper limit of 7.6%. His BS at home is fasting 80-low 100's, 160 after meals is considered too high. He typically checks BS once a day, but if experiencing fluctuations he will check up to 4 times a day.
At home he takes Glargine 20 units, Glipizide 5 mg BID and Metformin 1000 mg BID. He is very concerned about his recent BS in the 200's and 1 FBS at 70 mg/dL. He states this FBS of 70 is rare. He is very concerned because PMH of retinopathy and
blindness with elevated BS levels (last occurrence 5 years ago). He also has a history of TIA with swelling of optic nerves, treated with injections every 6-8 weeks. He also states he has hypoglycemia awareness, if his BS is low he does feel this
and treats with OJ. RN and MD notified.
We discussed CGM, he thinks this would be a 'pain' but may be open to trying for 2 weeks. He plans to discuss with his inclusion special education teacher, Dr. Sheldon Murphy, he will call for an appointment upon discharge. He lost 26 lbs in the past few months due to
lack of appetite 2/2 to pain.
He declined demonstration on insulin injection as he has been taking Lantus for a long time. I verbally reviewed proper storage and injection technique. He has been keeping a pen in use in the refrigerator, I provided education that pens in use
are to be kept at room temperature for a max of 28 days as per lens cleaner's recommendation.
[2024-12-11 11:41] LABS: Glucose - Point of Care 233 mg/dl (70-99)
[2024-12-11] MEDS: CITROMA 300 ML PO (11:47)
[2024-12-11] MEDS: NOVOLOG FLEXPEN-LOW RESISTANCE 2 UNITS SC (12:33)
[2024-12-11] MEDS: NOVOLOG FLEXPEN 4 UNITS SC ×2 (12:33→16:49)
--- NOTE | 2024-12-11 12:46 | W.PN.HOSP.TC ---
Addendum entered and electronically signed by Edward Tobias MD 12/11/24 16:53:
Patient continues to have steroid-induced hyperglycemia despite adding Premeal insulin.
Will increase Lantus to 20 units at bedtime, resume home glipizide, continue NovoLog 4 units AC 3 times daily.
Original Note:
Today's Communication/Plan
-
see bold
Assessment / Plan
Assessment / Plan
Assessment:
QUINTIN on CKD 3b with associated hyponatremia/hyperkalemia
- Likely related to recent Bactrim
- Resolved with IV fluids, creatinine 1.2 today, was 2.1 upon admission
- Can stop IV fluids after current bag, continue bladder scan protocol
Recent UTI
- was on Bactrim
- cultures growing staph aureus, sensitive to Augmentin, Levaquin, tetracycline
- currently on Rocephin for 2 days, will change to doxycycline to complete a 7-day course
Right hip pain
- MRI L spine 08/2023: 7.9 mm grade 1 anterolisthesis of L4 on L5 secondary to severe bilateral facet joint arthrosis. SEVERE CENTRAL CANAL STENOSIS, severe right neural foraminal narrowing, and moderate left neural foraminal narrowing at L4/L5.
- MRI L spine today: MODERATE-SIZED RIGHT SUBARTICULAR-FORAMINAL DISC EXTRUSION at L4/L5 causing severe exiting right L4 nerve root impingement and severe right neural foraminal narrowing which appears new from 08/31/2023.
- continue PO steroids, Gabapentin and Lidocaine patch
- Appreciate spine surgery, recommend KYAW with IR, plan for 12/12/2024 after Eliquis washout
- PT/OT - rec outpt PT
Constipation
- Continue laxatives, add magnesium citrate
Hypokalemia
- Mild, should improve with having a bowel movement
Perm A. Fib
- hold Eliquis in case of procedure
Type 2 DM
- continue reduced dose Lantus, start Premeal insulin 4 units AC 3 times daily
- hold Glipizide
- SSI
Essential HTN
- holding LUIS MIGUEL due to QUINTIN
- continue Nifedipine/Doxazosin
HLD - statin
BPH - continue doxazosin and tamsulosin
DVT ppx: SCDs, resume Eliquis after KYAW
Code: Full
Total time spent to see the patient on the floor, examine the patient, review data and lab results, discuss treatment plan with patient, nursing staff around 50 minutes.
Physical Exam
General: No acute distress
HEENT: Normocephalic, Atraumatic, EOMI, MMM
Respiratory: Clear to Auscultation bilaterally
Cardiac: Normal S1/S2, Regular Rate and Rhythm
GI: Soft, Nontender, Nondistended, Normal Bowel Sounds
Extremities: No Clubbing, Cyanosis
Neuro: Nonfocal/Grossly Intact
Psych: Calm, Cooperative
Anticipated Discharge: 24 - 48 hours
Subjective/Interval History
-
Date of Service: December 11, 2024
Patient complains of constipation. He has not had a bowel movement for 3 days. His hip pain is improved, currently 5 out of 10 in intensity. Denies chest pain, denies shortness of breath. No fever, no vomiting.
Objective Data
-
Labs:
Laboratory Results
12/11/24
06:37
WBC 6.7
Hgb 13.4
Hct 38.7 L
Plt Count 205
Sodium 135
Potassium 5.2 H
Chloride 106
Carbon Dioxide 21 L
BUN 32 H
Creatinine 1.2
Glucose 140 H
Calcium 9.3
Vital Signs:
Vital Signs
Temp Pulse Resp BP Pulse Ox
97.6 F 94 16 120/77 98
12/11/24 11:15 12/11/24 11:15 12/11/24 11:15 12/11/24 11:15 10/29/25 11:15
I&O
12/10/24 12/11/24 12/12/24
06:59 06:59 06:59
Intake Total 1440 / 1440 2360 / 2360
Output Total 1999 3180 / 3180
Balance -560 / -560 -820 / -820
[2024-12-11] MEDS: VIBRAMYCIN 100 MG PO ×2 (13:26→21:03)
[2024-12-11 15:30] VITALS: BP 147/78
[2024-12-11] MEDS: STERILE WATER FOR INJECTION IV (16:01)
[2024-12-11 16:29] LABS: Glucose - Point of Care 294 mg/dl (70-99)
[2024-12-11] MEDS: NOVOLOG FLEXPEN-LOW RESISTANCE 3 UNITS SC (16:49)
[2024-12-11] MEDS: LIPITOR 10 MG PO (16:50)
[2024-12-11] MEDS: CARDURA 2 MG PO (16:50)
[2024-12-11] MEDS: GLUCOTROL PO ×2 (17:39→17:42)
[2024-12-11 19:35] VITALS: BP 111/58
[2024-12-11] MEDS: FLOMAX 0.4 MG PO (21:03)
[2024-12-11 21:18] LABS: Glucose - Point of Care 228 mg/dl (70-99)
[2024-12-11] MEDS: LANTUS 0.2 UNITS SC (21:38)
[2024-12-11] MEDS: PERCOCET 5/325 1 TABLET PO (21:42)
[2024-12-11] MEDS: NEURONTIN 300 MG PO (21:42)
[2024-12-11 23:09] VITALS: BP 124/73
[2024-12-12] VITALS (7 sets, daily range): BP systolic 122–143; BP diastolic 66–85
[2024-12-12] MEDS: DILAUDID 0.5 MG IV ×2 (04:01→19:54)
[2024-12-12 06:27] LABS: Glucose - Point of Care 152 mg/dl (70-99)
[2024-12-12 07:02] LABS: Glucose - Point of Care 121 mg/dl (70-99)
[2024-12-12 08:28] LABS: Blood Urea Nitrogen 28 mg/dl (9-20); Calcium 10.1 mg/dl (8.4-10.2); Carbon Dioxide 21 mmol/L (22-30); Chloride 105 mmol/L (98-107); Estimated Creatinine Clearance 72 ml/min; Glucose 109 mg/dl (70-99); Potassium 4.9 mmol/L (3.5-5.1); Sodium 133 mmol/L (135-145); eGFR > 60.00
[2024-12-12] MEDS: NOVOLOG FLEXPEN-LOW RESISTANCE SC ×2 (08:35→11:37)
[2024-12-12] MEDS: GLUCOTROL PO (08:36)
[2024-12-12] MEDS: SENOKOT-S PO ×2 (08:37→19:48)
[2024-12-12] MEDS: LIDOCAINE 4% PATCH 1 PATCH TOPICAL (08:38)
[2024-12-12] MEDS: DELTASONE 40 MG PO (08:39)
[2024-12-12] MEDS: CARDIZEM 60 MG PO ×4 (08:39→21:45)
[2024-12-12] MEDS: VIBRAMYCIN 100 MG PO ×2 (08:39→19:49)
[2024-12-12] MEDS: NOVOLOG FLEXPEN 4 UNITS SC ×3 (08:40→17:13)
[2024-12-12 11:33] LABS: Glucose - Point of Care 124 mg/dl (70-99)
--- NOTE | 2024-12-12 12:13 | W.PN.HOSP.TC ---
Addendum entered and electronically signed by Jesse Storm MD 12/14/24 14:17:
Correction- Pt on Cardizem and Cardura for HTN , Not Nifedipine
Original Note:
Today's Communication/Plan
-
KYAW awaited.
If IR is not doing the procedure today will do heparin bridge
Assessment / Plan
Assessment / Plan
73-year-old man with recent Bactrim use for Skin infection. He took it for 3 days. Admitted with QUINTIN and hyperkalemia.
Patient also has been having pain in the right hip since 11/11/2024. He saw Dr. Cade from orthopedics, had a steroid injection on November 19, 2024. Pain was not getting better. No fall or trauma.
MRI of the lumbar [id number] right supra articular-foraminal disc extrusion at L4/L5 causing severe exiting right L4 nerve root impingement and severe right neural foraminal narrowing which is new since 08/31/2023
On examination awake alert oriented
Cardiovascular system S1-S2 appreciated
Chest clear to auscultation
Abdomen soft and nontender
No tenderness in the hip on palpation today but patient states that he he can have pain at times. Sciatic area pain noted. Lumbar area pain noted.
Very small ulcer on the posterior left calf no redness noted
# Acute kidney injury on CKD (Stage unclear ) with associated hyperkalemia with a creatinine of 2.1 on admission
Secondary to Bactrim use recently
Acute kidney injury resolved with IV fluids
IV fluids stopped. Continue bladder scan
# UTI-symptoms prior to admission
(Was on Bactrim to treat left calf area skin infection)
Currently on doxycycline
Urine cultures with MSSA
# Recent cellulitis with a small ulcer left posterior calf-looks stable
#Right Hip Pain
Abnormal MRI of the spine
Spine surgery consult appreciated recommended KYAW with IR planned for after Eliquis washout
Continue pain control with steroids, gabapentin and lidocaine patch
If patient is not getting KYAW today we will start heparin bridge with history of stroke
# Hyponatremia- Resolved
# Constipation-bowel regimen to be continued
# Permanent atrial fibrillation-resume Eliquis when safe to do so after the procedure. Continue Cardizem
# Type 2 diabetes hemoglobin A1c-7.8
Steroid-induced hyperglycemia
Continue glipizide 5 mg twice daily, Lantus 20 units at bedtime,, Premeal insulin 4 units AC
# Hypertension holding LUIS MIGUEL inhibitors secondary to acute kidney injury. Continue nifedipine and doxazosin. Blood pressure stable without LUIS MIGUEL inhibitors
# Hyperlipidemia-continue statin
# Enlarged prostate-continue doxazosin and tamsulosin
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
# Right thyroid lobe nodules-outpatient follow-up
# DVT [id number] Eliquis after KYAW
# FULL CODE
Discussed with interventional radiology
Discussed with nursing
Part of this note was created using voice recognition system. Occasional wrong word or��sound alike� substitutions may have inadvertently occurred due to the inherent limitations of voice recognition software. If noted kindly bring it to my
attention for correction.
Anticipated Discharge: 24 - 48 hours
Subjective/Interval History
-
Date of Service: December 12, 2024
Objective Data
-
Labs:
Laboratory Results
12/12/24
07:35
Sodium 133 L
Potassium 4.9
Chloride 105
Carbon Dioxide 21 L
BUN 28 H
Creatinine 1.0
Glucose 109 H
Calcium 10.1
Vital Signs:
Vital Signs
Temp Pulse Resp BP Pulse Ox
98 F 71 16 130/78 98
12/12/24 11:15 12/12/24 11:15 12/12/24 11:15 12/12/24 11:15 12/12/24 11:15
I&O
12/11/24 12/12/24 12/13/24
06:59 06:59 06:59
Intake Total 2360 / 2360 2059 / 2059 360 / 360
Output Total 3180 / 3180 2475 / 2475 1150 / 1150
Balance -820 / -820 -415 / -415 -790 / -790
--- NOTE | 2024-12-12 15:09 | W.PN.UPDATE ---
Update Note
Progress Note Update
IR will not do KYAW today planned for tomorrow. Therefore do heparin bridge. IR is aware to hold heparin according to the timing of their procedure tomorrow.
[2024-12-12 16:05] LABS: Hematocrit 38.4 % (39.0-52.0); Hemoglobin 14.2 g/dL (13.0-18.0); Mean Corp Hgb Conc. 37.0 g/dL (33.0-37.0); Mean Corpuscular Volume 88.3 fL (80.0-94.0); Platelet Count 219 10^3/uL (130-400); Red Cell Dist. Width 12.6 % (11.5-14.5)
[2024-12-12 16:09] LABS: APTT 25.4 Sec (23.4-35.0)
[2024-12-12] MEDS: HEPARIN 25000 UNITS/250 ML IV (16:37)
[2024-12-12] MEDS: STERILE WATER FOR INJECTION IV (16:49)
[2024-12-12 16:54] LABS: Glucose - Point of Care 254 mg/dl (70-99)
[2024-12-12] MEDS: NOVOLOG FLEXPEN-LOW RESISTANCE 3 UNITS SC (17:14)
[2024-12-12] MEDS: GLUCOTROL 5 MG PO (17:15)
[2024-12-12] MEDS: LIPITOR 10 MG PO (17:15)
[2024-12-12] MEDS: CARDURA 2 MG PO (17:15)
[2024-12-12 21:40] LABS: Glucose - Point of Care 268 mg/dl (70-99)
[2024-12-12] MEDS: FLOMAX 0.4 MG PO (21:45)
[2024-12-12] MEDS: NEURONTIN 300 MG PO (21:46)
[2024-12-12] MEDS: LANTUS 0.2 UNITS SC (21:46)
[2024-12-12 23:07] LABS: APTT 38.0 Sec (23.4-35.0)
[2024-12-13] VITALS (8 sets, daily range): BP systolic 61–164; BP diastolic 74–95; PULSE 76; BMI 29.6
[2024-12-13] MEDS: DILAUDID 0.5 MG IV (00:42)
[2024-12-13 06:47] LABS: APTT 50.8 Sec (23.4-35.0)
[2024-12-13 06:54] LABS: Glucose - Point of Care 183 mg/dl (70-99)
[2024-12-13] MEDS: NOVOLOG FLEXPEN-LOW RESISTANCE 1 UNITS SC ×2 (08:16→11:43)
[2024-12-13] MEDS: NOVOLOG FLEXPEN 4 UNITS SC ×3 (08:17→16:47)
[2024-12-13] MEDS: LIDOCAINE 4% PATCH 1 PATCH TOPICAL (08:18)
[2024-12-13] MEDS: SENOKOT-S PO ×2 (08:19→21:01)
[2024-12-13] MEDS: GLUCOTROL 5 MG PO (08:19)
[2024-12-13] MEDS: CARDIZEM 60 MG PO ×4 (08:19→22:07)
[2024-12-13] MEDS: DELTASONE 40 MG PO (08:19)
[2024-12-13] MEDS: VIBRAMYCIN 100 MG PO ×2 (08:19→20:14)
--- NOTE | 2024-12-13 10:59 | W.PN.HOSP.TC ---
Addendum entered and electronically signed by Jesse Storm MD 12/14/24 14:17:
Correction- Pt on Cardizem and Cardura for HTN , Not Nifedipine
Original Note:
Today's Communication/Plan
-
KYAW today
Assessment / Plan
Assessment / Plan
73-year-old man with recent Bactrim use for Skin infection. He took it for 3 days. Admitted with QUINTIN and hyperkalemia.
Patient also has been having pain in the right hip since 11/11/2024. He saw Dr. Cade from orthopedics, had a steroid injection on November 19, 2024. Pain was not getting better. No fall or trauma.
MRI of the lumbar bpxzd-[id number]-pucwa right supra articular-foraminal disc extrusion at L4/L5 causing severe exiting right L4 nerve root impingement and severe right neural foraminal narrowing which is new since 08/31/2023
On examination awake alert oriented
Cardiovascular system S1-S2 appreciated
Chest clear to auscultation
Abdomen soft and nontender
No tenderness in the hip on palpation today but patient states that he he can have pain at times. Sciatic area pain noted. Lumbar area pain noted.
# Acute kidney injury on CKD (Stage unclear ) with associated hyperkalemia with a creatinine of 2.1 on admission
Secondary to Bactrim use recently
Acute kidney injury resolved with IV fluids
IV fluids stopped. Continue bladder scan
# UTI-symptoms prior to admission
(Was on Bactrim to treat left calf area skin infection)
Currently on doxycycline
Urine cultures with MSSA
# Recent cellulitis with a small ulcer left posterior calf-looks stable
#Right Hip Pain
Abnormal MRI of the spine
Spine surgery consult appreciated recommended KYAW with IR planned for after Eliquis washout today
Continue pain control with steroids, gabapentin and lidocaine patch
Dilaudid and oxycodone is also ordered
# Hyponatremia- Resolved
# Constipation-bowel regimen to be continued
# Permanent atrial fibrillation-resume Eliquis when safe to do so after the procedure. Continue Cardizem. Discontinue heparin drip which was used for bridging in anticipation of the procedure
# Type 2 diabetes hemoglobin A1c-7.8
Steroid-induced hyperglycemia
Continue glipizide 5 mg twice daily, Lantus 20 units at bedtime,, Premeal insulin 4 units AC
# Hypertension holding LUIS MIGUEL inhibitors secondary to acute kidney injury. Continue nifedipine and doxazosin. Blood pressure stable without LUIS MIGUEL inhibitors
# Hyperlipidemia-continue statin
# Enlarged prostate-continue doxazosin and tamsulosin
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
# Right thyroid lobe nodules-outpatient follow-up
# DVT [id number] Eliquis after KYAW
# FULL CODE
Discussed with interventional radiology
Discussed with nursing
Part of this note was created using voice recognition system. Occasional wrong word or��sound alike� substitutions may have inadvertently occurred due to the inherent limitations of voice recognition software. If noted kindly bring it to my
attention for correction.
Anticipated Discharge: Within 24 hours
Subjective/Interval History
-
Date of Service: December 13, 2024
Objective Data
-
Labs:
Laboratory Results
12/12/24 12/13/24 12/13/24
22:50 06:01 13:20
APTT 38.0 H 50.8 H Pending
Vital Signs:
Vital Signs
Temp Pulse Resp BP Pulse Ox
98.8 F 84 12 130/81 98
12/13/24 07:00 12/13/24 08:19 12/13/24 07:00 12/13/24 08:19 12/13/24 08:11
I&O
12/12/24 12/13/24 12/14/24
06:59 06:59 06:59
Intake Total 2059 / 2059 1020 / 1020
Output Total 2475 / 2475 2925 / 2925
Balance -415 / -415 -1905 / -190
[2024-12-13 11:33] LABS: Glucose - Point of Care 177 mg/dl (70-99)
--- NOTE | 2024-12-13 16:09 | PTCARENOTE ---
Pt returned from IR s/p KYAW injection via stretcher, accompanied by volunteer. Pt AAO x3, COOK well, ambulatory to bed with minimal assistance; c/o slight neuropathy in BLE. VSS. Telemetry: A fib. On room air- pulseox 99%, no SOB noted. Abd
soft, rounded, gregorio 2000 [place] diet. Voids small amts clear yellow urine in urinal; also voids in BR at times. Lower back bandaid D/I; no edema/bruising/drainage noted at site. Resting in bed at present, no c/o. Will continue to monitor.
[2024-12-13 16:17] LABS: Glucose - Point of Care 242 mg/dl (70-99)
[2024-12-13] MEDS: GLUCOTROL PO (16:46)
[2024-12-13] MEDS: NOVOLOG FLEXPEN-LOW RESISTANCE 2 UNITS SC (16:47)
--- NOTE | 2024-12-13 17:17 | CM ---
Offered VN he declined .
Family will drive him home at dc
[facility] Home no needs
[2024-12-13] MEDS: LIPITOR 10 MG PO (17:20)
[2024-12-13] MEDS: CARDURA 2 MG PO (17:20)
[2024-12-13 21:09] LABS: Glucose - Point of Care 240 mg/dl (70-99)
[2024-12-13] MEDS: FLOMAX 0.4 MG PO (22:07)
[2024-12-13] MEDS: NEURONTIN 300 MG PO (22:07)
[2024-12-13] MEDS: LANTUS 0.2 UNITS SC (22:07)
[2024-12-14 03:44] VITALS: BP 139/89
[2024-12-14 06:00] VITALS: BMI 29.2
[2024-12-14 07:42] VITALS: BP 183/93
[2024-12-14] MEDS: CARDIZEM 60 MG PO ×2 (07:50→12:47)
[2024-12-14] MEDS: GLUCOTROL 5 MG PO (07:50)
[2024-12-14] MEDS: VIBRAMYCIN 100 MG PO (07:50)
[2024-12-14] MEDS: LIDOCAINE 4% PATCH 1 PATCH TOPICAL (07:51)
[2024-12-14] MEDS: DELTASONE 40 MG PO (07:51)
[2024-12-14 07:54] LABS: Glucose - Point of Care 166 mg/dl (70-99)
[2024-12-14] MEDS: NOVOLOG FLEXPEN-LOW RESISTANCE 1 UNITS SC (07:54)
[2024-12-14] MEDS: NOVOLOG FLEXPEN 4 UNITS SC (07:54)
[2024-12-14] MEDS: SENOKOT-S PO (08:01)
[2024-12-14] MEDS: ELIQUIS 5 MG PO (10:16)
[2024-12-14 11:29] VITALS: BP 130/71
[2024-12-14 11:38] LABS: Glucose - Point of Care 420 mg/dl (70-99)
[2024-12-14 12:20] LABS: Glucose 440 mg/dl (70-99)
[2024-12-14] MEDS: NOVOLOG FLEXPEN SC (12:37)
[2024-12-14] MEDS: NOVOLOG FLEXPEN-LOW RESISTANCE SC (12:37)
[2024-12-14] MEDS: NOVOLOG FLEXPEN 15 UNITS SC (12:46)
--- NOTE | 2024-12-14 14:07 | W.PN.HOSP.TC ---
Addendum entered and electronically signed by Jesse Storm MD 12/14/24 15:32:
More than 30 minutes spent in discharge including
Final examination of the patient
Summarizing hospital stay
Instructions for continuing care to all relevant caregivers
Preparation of discharge records, prescriptions, and referral forms
Original Note:
Today's Communication/Plan
-
If blood sugars are better we will discharge him today.
Assessment / Plan
Assessment / Plan
73-year-old man with recent Bactrim use for Skin infection. He took it for 3 days. Admitted with QUINTIN and hyperkalemia.
Patient also has been having pain in the right hip since 11/11/2024. He saw Dr. Cade from orthopedics, had a steroid injection on November 19, 2024. Pain was not getting better. No fall or trauma.
MRI of the lumbar xvntt-ddwyfeoo-eomuo right supra articular-foraminal disc extrusion at L4/L5 causing severe exiting right L4 nerve root impingement and severe right neural foraminal narrowing which is new since 08/31/2023
On examination awake alert oriented
Cardiovascular system S1-S2 appreciated
Chest clear to auscultation
Abdomen soft and nontender
No tenderness in the hip on palpation today but patient states that he he can have pain at times. Sciatic area pain noted. Lumbar area pain noted.
# Acute kidney injury on CKD (Stage unclear ) with associated hyperkalemia with a creatinine of 2.1 on admission
Secondary to Bactrim use recently
Acute kidney injury resolved with IV fluids
# UTI-symptoms prior to admission
(Was on Bactrim to treat left calf area skin infection)
Currently on doxycycline
Urine cultures with MSSA
# Recent cellulitis with a small ulcer left posterior calf-looks stable
#Right Hip Pain
Abnormal MRI of the spine
Spine surgery consult appreciated recommended KYAW
Continue pain control with Tramodol, gabapentin and lidocaine patch
Discontinue oral steroids
Status post epidural steroid injection on 12/13/2024 by interventional radiology
# Hyponatremia- Resolved
# Permanent atrial fibrillation-resume Eliquis discussed with interventional radiology. Okay to do so. Cardizem CD 120 mg daily for discharge
# Type 2 diabetes hemoglobin A1c-7.8
Steroid-induced hyperglycemia
Continue glipizide 5 mg twice daily, Lantus 20 units at bedtime,, Premeal insulin 4 units AC
Sugars were elevated secondary to steroids. Now that steroids are being stopped we will get better
# Hypertension holding LUIS MIGUEL inhibitors secondary to acute kidney injury. Continue Cardizem. Resume lisinopril but will do 20 mg instead of 40 with mild hyperkalemia. Also continue doxazosin. Will discontinue nifedipine and verapamil. I discussed
this with Dr. Raya
# Hyperlipidemia-continue statin
# Enlarged prostate-continue doxazosin and tamsulosin
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
# Right thyroid lobe nodules-outpatient follow-up
# DVT [id number] Eliquis
# FULL CODE
Discussed with interventional radiology
Discussed with nursing
Discussed with Dr. Raya regarding antihypertensive management see above. Call the office for appointment
Part of this note was created using voice recognition system. Occasional wrong word or��sound alike� substitutions may have inadvertently occurred due to the inherent limitations of voice recognition software. If noted kindly bring it to my
attention for correction.
Anticipated Discharge: Today
Subjective/Interval History
-
Date of Service: December 14, 2024
Objective Data
-
Labs:
Laboratory Results
12/14/24
11:51
Glucose 440 H
Vital Signs:
Vital Signs
Temp Pulse Resp BP Pulse Ox
97.6 F 79 18 130/71 97
12/14/24 11:29 12/14/24 11:29 12/14/24 11:29 12/14/24 11:29 12/14/24 11:29
I&O
12/13/24 12/14/24 12/15/24
06:59 06:59 05:59
Intake Total 1020 / 1020 1330 / 1330
Output Total 2925 / 2925 2300 / 2300
Balance -1905 / -1905 -970 / -970
[2024-12-14 15:07] LABS: Glucose - Point of Care 264 mg/dl (70-99)
[2024-12-14 15:25] VITALS: BP 160/86
--- NOTE | 2024-12-14 15:31 | W.DS.TRANS ---
DC Summary - Entry Operator
-
Discharge Instructions:
Sleep Apnea Risk Intermediate
Discharge Diagnosis/Procedures Acute kidney injury
UTI
Moderate-sized right subarticular foraminal disc
extrusion L4/L5 causing L1 nerve root
impingement and severe right neural foraminal
narrowing status post epidural steroid injection
on 12/13/2024
Mild hyponatremia
Atrial fibrillation
Diabetes
Hypertension
Hyperlipidemia
Enlarged prostate
History of CVA
Diet Diabetic, Carb Controlled
Activity As tolerated,No strenuous activity
Driving Restrictions As prior to admission
Blood Work BMP 1 week
Instructions:
Stand-Alone Forms:
Changes to Home Medications: Yes
Discharge Medications:
DC Medications w/original date entered in [facility]
atorvastatin 10 mg tablet 10 mg PO QPM High Cholesterol 03/12/11
apixaban 5 mg tablet (Eliquis) 5 mg PO BID Blood Clot Prevention/Tx 12/09/24
glipizide 5 mg tablet 5 mg PO BID Diabetes 12/09/24
insulin glargine 100 unit/mL (3 mL) subcutaneous pen (Lantus Solostar U-100 Insulin) 20 unit SC HS Diabetes 12/09/24
therapeutic multivitamin 1 tab PO TUTH Supplement 12/09/24
diltiazem HCl 120 mg capsule,extended release 24 hr 120 mg PO DAILY Blood pressure #30 caps 12/14/24
doxazosin 2 mg tablet 2 mg PO QPM Blood pressure #0 tabs 12/14/24
gabapentin 300 mg capsule 300 mg PO HS Pain #30 caps 12/14/24
lidocaine 4 % topical patch 1 patch topical DAILY pain #0 ea 12/14/24
lisinopril 40 mg tablet 20 mg (1/2 x 40 mg) PO QPM Blood Pressure #0 tabs 12/14/24
polyethylene glycol 3350 17 gram oral powder packet 17 g PO DAILY Constipation #0 ea 12/14/24
tamsulosin 0.4 mg capsule 0.4 mg PO HS Urinary issue #0 caps 12/14/24
tramadol 50 mg tablet 25 mg (1/2 x 50 mg) PO Q6HPRN PRN moderate pain #30 tabs 12/14/24
Home Medication Changes
Verapamil, nifedipine discontinued.
Lisinopril decreased to 20 mg
Tramadol, gabapentin, lidocaine, Cardizem are new
Pending Results: No
== END 2024-12-14 17:35 | disposition home or self-care (01) | DRG 552 ==
LOC: 4 EAST ACU 18:14
PROVIDERS: Internal Medicine; Physician Assistant Medical; Radiology Vascular & Interventional Radiology; ADMITTING PHYSICIAN Internal Medicine; ATTENDING PHYSICIAN Hospitalist; CONSULT PHYSICIAN Neurological Surgery; EMERGENCY PHYSICIAN Emergency Medicine; FAMILY PHYSICIAN Family Medicine
PROC: 3E0R3BZ Introduction of Anesthetic Agent into Spinal Canal, Percutaneous Approach (ICD-10-PCS; 2024-12-13)
DX: M51.16 Intervertebral disc disorders with radiculopathy, lumbar region (principal); N17.9 Acute kidney failure, unspecified; E87.1 Hypo-osmolality and hyponatremia; N39.0 Urinary tract infection, site not specified; L03.116 Cellulitis of left lower limb; I48.21 Permanent atrial fibrillation; L02.416 Cutaneous abscess of left lower limb; M48.061 Spinal stenosis, lumbar region without neurogenic claudication; M51.26 Other intervertebral disc displacement, lumbar region; T38.0X5A Adverse effect of glucocorticoids and synthetic analogues, initial encounter; M25.551 Pain in right hip; E78.5 Hyperlipidemia, unspecified; I12.9 Hypertensive chronic kidney disease with stage 1 through stage 4 chronic kidney disease, or unspecified chronic kidney disease; E11.22 Type 2 diabetes mellitus with diabetic chronic kidney disease; N18.32 Chronic kidney disease, stage 3b; E87.5 Hyperkalemia; N40.0 Benign prostatic hyperplasia without lower urinary tract symptoms; K59.00 Constipation, unspecified; Z79.4 Long term (current) use of insulin; Z79.01 Long term (current) use of anticoagulants
CPT/HCPCS: 62323; 72148; 80048; 80053; 81003; 81015; 82947; 82962; 83036; 83735; 83930; 83935; 84300; 85025; 85027; 85610; 85730; 87086; 87147; 87186; 93005; 96374; 96375; 97116; 97162; 97166; 97530; 97535; 99285